=== PATIENT | female | born 1995 | race Two or more races ===

== ENCOUNTER 2017-10-02 14:14 | Emergency (ER) | payer SELFPAY ==
[2017-10-02 14:17] VITALS: TEMP 97.9
[2017-10-02] MEDS ORDERED: Sodium Chloride 0.9% 1,000 ML IV STA (14:35)
--- NOTE | 2017-10-02 14:35 | ED PDOC ---
HPI: Psych/Substance Abuse Time Seen by Provider: 10/02/17 14:21 Chief Complaint (Nursing): Alcohol Ingestion Chief Complaint (Provider): Found with unsteady gait History Per: Patient, EMS History/Exam Limitations: intoxication Current Symptoms Are (Timing): Still Present Modifying Factor(s): Alcohol Additional Complaint(s): 22 yo female who denies PMHx presents after being found walking with unsteady gait outside. Pt denies health problems. According to EMS pt was running from them and fell, hitting her left knee. No head injury. Pt uncooperative on initial arrival and unable to follow commands. Past Medical History Reviewed: Historical Data, Nursing Documentation, Vital Signs Vital Signs: Last Vital Signs Temp 97.9 F 10/02/17 14:15 Pulse 135 H 10/02/17 14:15 Resp 16 10/02/17 14:15 BP 155/74 H 10/02/17 14:15 Pulse Ox 100 10/02/17 14:15 - Medical History PMH: No Chronic Diseases - Surgical History Surgical History: No Surg Hx - Family History Family History: States: No Known Family Hx - Allergies Allergies/Adverse Reactions: Allergies Allergy/AdvReac Type Severity Reaction Status Date / Time No Known Allergies Allergy Verified 10/02/17 14:15 Physical Exam - Reviewed Nursing Documentation Reviewed: Yes Vital Signs Reviewed: Yes - Physical Exam Appears: Positive for: Well, Non-toxic, No Acute Distress Head Exam: Positive for: ATRAUMATIC, NORMAL INSPECTION, NORMOCEPHALIC Skin: Positive for: Normal Color, Warm Eye Exam: Positive for: Normal appearance, EOMI (SLuggish) ENT: Positive for: Normal ENT Inspection Neck: Positive for: Normal, Painless ROM Cardiovascular/Chest: Positive for: Regular Rate, Rhythm Respiratory: Positive for: CNT, Normal Breath Sounds Back: Positive for: Normal Inspection Extremity: Positive for: Normal ROM Neurologic/Psych: Positive for: Alert. Negative for: Oriented, Gait (Unsteady) - Laboratory Results Result Diagrams: 10/02/17 15:10 10/02/17 14:34 - ECG O2 Sat by Pulse Oximetry: 100 Medical Decision Making Medical Decision Making: Ativan IM ordered. Pt was not put on restraints. 1500 - Pt pulled out IV. IM haldol ordered. 1715 - 88, 98%, 18 RR - Pt sleeping comfortable in bed. 1900 - 88, 99%, 17 RR - Pt NAD, sleeping. 2020 - Pt Sleeping. 84, 100%, 18 RR Endorsed to Nelson Bocanegra PA-C pending sobriety. Disposition - Clinical Impression Clinical Impression: Alcohol abuse with intoxication - Patient ED Disposition Is Patient to be Admitted: Transfer of Care - Disposition Disposition: Transfer of Care Disposition Time: 20:25 Condition: STABLE Forms: [employer] (Yi)
[2017-10-02 15:18] LABS: HEMATOCRIT 41.5 % (34.0-47.0); MEAN CELL VOLUME 85.9 fl (81.0-99.0); MEAN CORPUSCULAR HEMOGLOBIN 28.2 pg (27.0-31.0); MEAN CORPUSCULAR HGB CONC 32.8 g/dL (33.0-37.0); RED CELL DISTRIBUTION WIDTH 14.6 % (11.5-14.5); WHITE BLOOD COUNT 5.2 K/uL (4.8-10.8)
[2017-10-02 15:46] LABS: ALB/GLOB RATIO 1.5 (1.0-2.1); ALKALINE PHOSPHATASE 84 U/L (38-126); ALT/SGPT 33 U/L (9-52); AST/SGOT 22 U/L (14-36); BILIRUBIN,TOTAL 0.3 mg/dl (0.2-1.3); BLOOD UREA NITROGEN 7 mg/dl (7-17); CALCIUM 9.1 mg/dL (8.4-10.2); CARBON DIOXIDE 22 mmol/L (22-30); CHLORIDE 107 mmol/L (98-107); GFR AFRICAN-AMERICAN > 60; GLUCOSE,RANDOM 109 mg/dL (65-105); POTASSIUM 3.6 MMOL/L (3.6-5.0); SODIUM 146 mmol/l (132-148); TOTAL PROTEIN 8.4 G/DL (6.3-8.2)
[2017-10-02 15:58] LABS: ALCOHOL SERUM 379 mg/dl (0-10)
--- NOTE | 2017-10-02 21:54 | ED PDOC ---
- Laboratory Results Result Diagrams: 10/02/17 15:10 10/02/17 14:34 - ECG O2 Sat by Pulse Oximetry: 100 Medical Decision Making Medical Decision Making: Case endorsed to chief underwriter from OVIDIO Barber at 1999 pending clinical sobriety EKG: ST at 124, incomplete RBBB, as read by ED ETOH [id number] 2100: Pt asleep, P 88 on monitor. Easily arrousable to verbal stimuli. 2300: Pt awake and alert, P 115 Pt reports a history of tachycardia and anxiety. stable for discharge at this time Disposition - Clinical Impression Clinical Impression: Alcohol abuse with intoxication - POA Present On Arrival: None - Disposition Disposition: Routine/Home Disposition Time: 23:46 Condition: STABLE Instructions: Alcohol Intoxication (DC) Forms: [facility] (Welsh)
--- NOTE | 2017-10-02 22:22 | CARD ---
APPROVED REPORT EKG Measurement Heart [id number] <Conclusion> Sinus tachycardia Incomplete right bundle branch block Nonspecific T wave abnormality Abnormal ECG
[2017-10-02 23:14] VITALS: BP 151/84
[2017-10-02 23:46] VITALS: O2SAT 100
[2017-10-03 00:11] VITALS: PULSE 115; RESP 18
== END 2017-10-03 00:11 | disposition home or self-care (01) ==
LOC: H.ER 14:14
DX: F10.129 Alcohol abuse with intoxication, unspecified (principal)
CPT/HCPCS: 80053; 81025; 82948; 85027; 93005; 96372; 99285; G0480; J1630; J2060; J7040